=== PATIENT | female | born 1965 | race Caucasian/White ===

== ENCOUNTER → 2016-08-16 | Outpatient (CLI) | payer OTHER ==
[~2016-08-16] MED LIST: RT-ALBUTEROL SULF 2.5 MG/3 ML PRE-MIX VIAL IH ONE
--- NOTE | 2016-08-16 13:11 | Diagnostic Imaging Report ---
INDICATION: Upper back pain. EXAMINATION: PA and lateral chest. FINDINGS: Heart size and pulmonary vascularity are normal. Lungs are clear. There are no effusions or pneumothoraces. IMPRESSION: Negative chest. Dictated by: Dictated on workstation # [id number]
--- NOTE | 2016-08-16 14:03 | Diagnostic Imaging Report ---
EXAMINATION: Three views of the lumbar spine. INDICATION: Back pain. FINDINGS: There is a minimal right convexity curvature of the lumbar spine which could be positional or related to mild scoliosis. There is mild retrolisthesis of L3 over L4 and minimal retrolisthesis of L4 over L5. This is associated with mild disc height loss at both levels. Minimal anterior osteophytes are also seen. No significant posterior osteophytes are noted. Mild sclerotic degenerative changes in the sacroiliac joint seen. IMPRESSION: Lower lumbar spine degenerative changes and alignment abnormalities described, are presumably also degenerative related. Dictated by: Dictated on workstation # [id number]
== END ==
LOC: RT 11:44
PROVIDERS: ATTEND Neuromusculoskeletal Medicine, Sports Medicine
DX: Z02.71 Encounter for disability determination (principal); M51.36 Other intervertebral disc degeneration, lumbar region
CPT/HCPCS: 71020; 72100; 94060; 94640; 94729

== ENCOUNTER → 2018-05-24 | Outpatient (CLI) | payer MEDICAID ==
--- NOTE | 2018-05-24 10:13 | Diagnostic Imaging Report ---
INDICATION: Neck pain extending to the right arm. Time of exam 10:00 a.m. 3 views of the cervical spine were obtained. Curvature and alignment of the cervical spine is normal. The vertebral body heights and disc spaces are well-maintained. The prevertebral soft tissues are within normal limits. The odontoid appears intact. No fractures are seen. IMPRESSION: No acute bony abnormality is detected. Dictated by: Dictated on workstation # [id number]
== END ==
LOC: RAD FS 09:52
PROVIDERS: ATTEND Family Medicine
DX: M54.12 Radiculopathy, cervical region (principal)
CPT/HCPCS: 72040

== ENCOUNTER 2018-06-07 18:29 | Emergency (ER) | payer MEDICAID ==
--- NOTE | 2018-06-07 19:00 | NUR ---
was told by registration that this patiet left without being seen. unable to have patient sign form as this RN never saw patient.
--- OUTSIDE RECORDS SUMMARY | 2018-06-07 19:43 | XMS REPORT ---
Author Author Migration, Doctor Organization [facility] Address Unknown Phone Unavailable Care Team Providers Care Wirer Helper Name Role Phone Migration, Doctor Unavailable Unavailable PROBLEMS Type Condition ICD9-CM Code [id number] Code Onset Dates Condition Status SNOMED Code Problem Family history of diabetes mellitus V18.0 Active 913821891 Problem Screening for malignant neoplasm of the cervix V76.2 Active 025104884 Problem Unspecified abnormal mammogram 793.80 Active 217114687 Problem Abnormal glandular Papanicolaou smear of cervix 795.00 Active 166944109 Problem Other malaise and fatigue 780.79 Active 117465455 Problem Abdominal pain, unspecified site 789.00 Active 13694178 Problem Lump or mass in breast 611.72 Active 89580617 Problem Excessive or frequent menstruation 626.2 Active 354196262 Problem Intramural leiomyoma of uterus 218.1 Active 79459098 Problem Alcohol withdrawal syndrome with complication F10.239 Active 393409625 Problem Non morbid obesity E66.9 Active 992177787 Problem Other secondary kyphosis, 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 Active 652747418 Problem Unspecified iron deficiency anemia 280.9 Active 22600325 Problem Centrilobular emphysema J43.2 Active 40062779 Problem Extrinsic asthma, unspecified 493.00 Active 802827252 Problem Episode of moderate major depression F32.1 Active 51406470 Problem Alcohol induced acute pancreatitis without necrosis or infection K85.20 Active 987176913 Problem History of smoking 30 or more pack years Z87.891 Active 9720823182857 Problem Alcohol abuse F10.10 Active 55785717 ALLERGIES No Information ENCOUNTERS Encounter Location Date Diagnosis [address] [address] May, [address] [address] May, Radicular pain in right arm M79.[address] [address] Apr, [address] [address] Apr, Radicular pain in right arm M79.[address] [address] 18 Apr, 2018 Radicular pain in right arm M79.2 ; Hypoxia R09.02 ; Intramural leiomyoma of uterus 218.1 ; Unspecified iron deficiency anemia 280.9 ; Extrinsic asthma, unspecified 493.00 ; Lump or mass in breast 611.72 ; Excessive or frequent menstruation 626.2 ; Other malaise and fatigue 780.79 ; Abdominal pain, unspecified site 789.00 ; Unspecified abnormal mammogram 793.80 ; Abnormal glandular Papanicolaou smear of cervix 795.00 ; Family history of diabetes mellitus V18.0 ; Screening for malignant neoplasm of the cervix V76.2 ; Alcohol induced acute pancreatitis without necrosis or infection K85.20 ; Alcohol abuse F10.10 ; Alcohol withdrawal syndrome with complication F10.239 ; Centrilobular emphysema J43.2 ; History of smoking 30 or more pack years Z87.891 ; Other secondary kyphosis, 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 ; Episode of moderate major depression F32.1 and Non morbid obesity E66.[address] [address] 17 Apr, 2018 [facility] [address] [address] Apr, [address] [address] Apr, [facility] [address] [address] Jun, [facility] [id number] [place] [address] Jun, [facility] [address] [address] July, [facility] [address] [address] July, [facility] [place] [facility] [address] [id number] [place] [address] July, [facility] [place] [facility] [address] [id number] [place] [address] July, [facility] [place] [facility] [address] [id number] [place] [address] Jan, [facility] [place] [facility] [address] [id number] [place] [address] Jan, [facility] [place] [facility] [address] [id number] [place] [address] Jan, [facility] [place] [facility] [address] [id number] [place] [address] Jan, [facility] [place] [facility] [address] [id number] [place] [address] Dec, [facility] [place] [facility] [address] [id number] [place] [address] Dec, [facility] [place] [facility] [address] [id number] [place] [address] Dec, [facility] [place] [facility] [address] [facility] [id number] [address] Dec, [facility] [place] [facility] [address] [id number] [address] Dec, [facility] [place] [facility] [address] [id number] [address] Dec, [facility] [place] [facility] [address] [id number] [address] Dec, [facility] [place] [facility] [address] [id number] [address] Dec, [facility] [place] [facility] [address] [facility] [id number] [address] Dec, [facility] [place] [facility] [address] [id number] [address] Dec, [facility] [address] [address] Dec, [facility] [id number] [address] Dec, [facility] [id number] [address] Dec, [facility] [id number] [place] [address] Dec, [facility] [id number] [place] [address] Dec, [facility] [id number] [place] [address] Nov, [facility] [address] [address] Nov, [facility] [address] [address] Nov, [facility] [address] [address] Nov, IMMUNIZATIONS No Known Immunizations SOCIAL HISTORY Never Assessed REASON FOR VISIT [facility] [place] PLAN OF CARE VITAL SIGNS MEDICATIONS Unknown Medications RESULTS No Results PROCEDURES No Known procedures INSTRUCTIONS MEDICATIONS ADMINISTERED No Known Medications MEDICAL (GENERAL) HISTORY Type Description Date Medical History Alcohol induced acute pancreatitis without necrosis or infection Medical History Alcohol abuse Medical History Alcohol withdrawal syndrome with complication Medical History Centrilobular emphysema Medical History History of smoking 30 or more pack years Medical History Other secondary kyphosis, thoracic region Medical History Episode of moderate major depression Medical History Non morbid obesity Surgical History section Surgical History ankle surgery
--- OUTSIDE RECORDS SUMMARY | 2018-06-07 19:43 | XMS REPORT ---
Author Author ANDREI NESSELIAZAR Dug[facility] Address [address] [place] [address] Care Team Providers Care Information Systems Security Analyst Name Role Phone NESS FORBES Unavailable PROBLEMS Type Condition ICD9-CM Code EZV06-LL Code Onset Dates Condition Status SNOMED Code Problem Family history of diabetes mellitus V18.0 Active 828461583 Problem Screening for malignant neoplasm of the cervix V76.2 Active 332558275 Problem Unspecified abnormal mammogram 793.80 Active 090127037 Problem Abnormal glandular Papanicolaou smear of cervix 795.00 Active 474713376 Problem Other malaise and fatigue 780.79 Active 290472707 Problem Abdominal pain, unspecified site 789.00 Active 67897820 Problem Lump or mass in breast 611.72 Active 29085884 Problem Excessive or frequent menstruation 626.2 Active 596008207 Problem Intramural leiomyoma of uterus 218.1 Active 68833423 Problem Alcohol withdrawal syndrome with complication F10.239 Active 984347407 Problem Non morbid obesity E66.9 Active 034631908 Problem Other secondary kyphosis, 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 Active 410773484 Problem Unspecified iron deficiency anemia 280.9 Active 53384659 Problem Centrilobular emphysema J43.2 Active 23562938 Problem Extrinsic asthma, unspecified 493.00 Active 074888378 Problem Episode of moderate major depression F32.1 Active 36510367 Problem Alcohol induced acute pancreatitis without necrosis or infection K85.20 Active 350192433 Problem History of smoking 30 or more pack years Z87.891 Active 9246780958223 Problem Alcohol abuse F10.10 Active 69911168 ALLERGIES Substance Reaction Event Type Date Status Codeine Sulfate itching Drug Allergy Apr, Active ENCOUNTERS Encounter Location Date Diagnosis [address] [address] Apr, [address] [address] Apr, [facility] [place] [facility] [address] [id number] [place] [address] Apr, [facility] [place] [address] [place] [address] Apr, [facility] [place] [facility] [address] [id number] [place] [address] Jun, [facility] [place] [facility] [address] [id number] [place] [address] Jun, [facility] [place] [facility] [address] [id number] [place] [address] July, [facility] [place] [facility] [address] [id number] [place] [address] July, [facility] [place] [facility] [address] [id number] [place] [address] July, [facility] [place] [facility] [address] [id number] [place] [address] July, [facility] [place] [facility] [address] [id number] [place] [address] Jan, [facility] [place] [facility] [address] [id number] [place] [address] Jan, [facility] [place] [facility] [address] [id number] [address] Jan, [facility] [place] [facility] [address] [id number] [place] [address] Jan, [facility] [place] [facility] [address] [id number] [place] [address] Dec, [facility] [place] [facility] [address] [id number] [place] [address] Dec, [facility] [place] [facility] [address] [id number] [place] [address] Dec, [facility] [place] [facility] [address] [id number] [place] [address] Dec, [facility] [address] [id number] [place] [address] Dec, [facility] [address] [facility] [id number] [place] Dec, [facility] [address] [facility] [id number] [place] [address] Dec, [facility] [address] [facility] [id number] [place] [address] Dec, [facility] [address] [facility] [id number] [place] Dec, [facility] [address] [facility] [id number] [place] [address] Dec, [facility] [address] [address] Dec, [facility] [address] [facility] [id number] [place] [address] Dec, [facility] [address] [address] Dec, [facility] [address] [facility] [id number] [place] [address] Dec, [facility] [address] [address] Dec, [facility] [address] [facility] [id number] [place] [address] 27 Nov, 2011 [facility] [address] [facility] [id number] [place] [address] 17 Nov, 2011 [facility] [address] [facility] [id number] [place] [address] 12 Nov, 2011 [facility] [id number] [address] 11 Nov, 2011 IMMUNIZATIONS No Known Immunizations SOCIAL HISTORY Never Assessed REASON FOR VISIT PLAN OF CARE VITAL SIGNS MEDICATIONS Medication Instructions Dosage Frequency Start Date End Date Duration Status Albuterol Sulfate (2.5 MG/3ML) 0.083% USE 3 ML IN NEBULIZER EVERY 6 HOURS NEEDED FOR SHORTNESS OF BREATH 9 Active ProAir HFA 108 (90 Base) MCG/ACT INHALE 2 PUFFS BY MOUTH EVERY 6 HOURS NEEDED FOR SHORTNESS OF BREATH OR WHEEZING 25 Active Singulair 10 mg 1 tablet by Oral route 1 time per day Dec, Unknown Prozac 20 MG Orally Once a day 1 capsule 24h 90 days Active Ventolin HFA 90 mcg/actuation inhale 2 puff by Inhalation route as needed every 6 hoursfor breathing Nov, Active Tylenol PM Extra Strength by Oral route Nov, Active Advair Diskus 250-50 MCG/DOSE INHALE ONE PUFF BY MOUTH TWICE DAILY 30 Active Ferrous Sulfate 325 mg (65 mg iron) 1 tablet by Oral route 2 times per day Nov, Unknown RESULTS No Results PROCEDURES No Known procedures [...]
--- OUTSIDE RECORDS SUMMARY | 2018-06-07 19:43 | XMS REPORT | Continuity of Care Document ---
Author Author [facility] Address Unknown Phone Unavailable Allergies Active Description Code Type Severity Reaction Onset Reported/Identified Relationship to Patient Clinical Status Yes No Known Drug Allergies [id number] Drug Allergy Unknown N/A 08/16/2016 Medications There is no data. Problems Date Dx Coded Attending Type Code Diagnosis Diagnosed By 11/28/2011 493.00 ASTHMA EXTRINSIC 11/28/2011 626.2 MENORRHAGIA 11/28/2011 780.79 FATIGUE 11/28/2011 789.00 abdominal pain 11/28/2011 V18.0 FAMILY HISTORY OF DIABETES MELLITUS 11/28/2011 RACHEL DAI DO 493.00 ASTHMA EXTRINSIC 11/28/2011 RACHEL DAI DO 626.2 MENORRHAGIA 11/28/2011 RACHEL DAI DO 780.79 FATIGUE 11/28/2011 RACHEL DAI DO 789.00 abdominal pain 11/28/2011 RACHEL DAI DO V18.0 FAMILY HISTORY OF DIABETES MELLITUS 12/14/2011 280.9 IRON DEFICIENCY ANEMIA UNSPECIFIED 12/14/2011 611.72 LUMP OR MASS IN BREAST 12/14/2011 V76.2 CERVICAL CANCER SCREENING (PAP SMEAR) 12/14/2011 RACHEL DAI DO 280.9 IRON DEFICIENCY ANEMIA UNSPECIFIED 12/14/2011 RACHEL DAI DO 611.72 LUMP OR MASS IN BREAST 12/14/2011 RACHEL DAI DO V76.2 CERVICAL CANCER SCREENING (PAP SMEAR) 01/04/2012 218.1 INTRAMURAL LEIOMYOMA OF UTERUS 01/04/2012 795.00 ABNORMAL PAP - AGCUS (ATYPICAL GLANDULAR CELLS OF UNDETERMINED SIGNIFICANCE) 01/04/2012 RACHEL DAI DO 218.1 INTRAMURAL LEIOMYOMA OF UTERUS 01/04/2012 RACHEL DAI DO 795.00 ABNORMAL PAP - AGCUS (ATYPICAL GLANDULAR CELLS OF UNDETERMINED SIGNIFICANCE) 01/24/2012 793.80 ABNORMAL MAMMOGRAM 01/24/2012 RACHEL DAI DO 793.80 ABNORMAL MAMMOGRAM 03/01/2016 Ot 621.2 HYPERTROPHY OF UTERUS 03/01/2016 Ot 626.2 EXCESSIVE MENSTRUATION 03/01/2016 Ot 789.39 ABDOMINAL/ PELVIC SWELLING,MASS/LUMP, OTH 03/02/2016 JAVY ABDI MD (DDU) Ot Z02.71 ENCOUNTER FOR DISABILITY DETERMINATION 08/11/2016 Ot 621.2 HYPERTROPHY OF UTERUS 08/11/2016 Ot 626.2 EXCESSIVE MENSTRUATION 08/11/2016 Ot 789.39 ABDOMINAL/ PELVIC SWELLING,MASS/LUMP, OTH 08/11/2016 JAVY ABDI MD (DDU) Ot Z02.71 ENCOUNTER FOR DISABILITY DETERMINATION 08/18/2016 JAVY ABDI MD (DDU) Ot M51.36 OTHER INTERVERTEBRAL DISC DEGENERATION, 08/18/2016 JAVY ABDI MD (DDU) Ot Z02.71 ENCOUNTER FOR DISABILITY DETERMINATION 05/24/2018 JAVY ABDI MD (DDU) Ot Z02.71 ENCOUNTER FOR DISABILITY DETERMINATION 05/24/2018 JAVY ABDI MD (DDU) Ot M51.36 OTHER INTERVERTEBRAL DISC DEGENERATION, 05/24/2018 JAVY ABDI MD (DDU) Ot Z02.71 ENCOUNTER FOR DISABILITY DETERMINATION 05/27/2018 NESS FORBES MD Ot M54.12 RADICULOPATHY, CERVICAL REGION 06/05/2018 NESS FORBES MD Ot M54.12 RADICULOPATHY, CERVICAL REGION 06/06/2018 NESS FORBES MD Ot M54.12 RADICULOPATHY, CERVICAL REGION Procedures Code Description [place] [address] US BREAST(S) ULTRASOUND, BOTH 01/05/2012 05040 MAMMOGRAM DX, DENISA 07/15/2012 26244 MAMMOGRAM DX, LEFT 07/17/2012 Results There is no data. Encounters ACCT No. Visit Date/Time Discharge Status Pt. Type Provider Facility Loc./Unit Complaint [id number] 01/04/2012 09:28:00 01/04/2012 23:59:59 CLS Outpatient MALAIKA RACHEL JOHNSON [id number] 01/04/2012 09:28:00 Document Registration [id number] 05/24/2018 09:52:00 05/24/2018 23:59:59 CLS Outpatient NESS FORBES MD [facility] RAD FS M79.2 [id number] 08/16/2016 11:44:00 08/16/2016 23:59:59 CLS Outpatient JAVY ABDI MD (DDU) [facility] RT DDU [id number] 03/01/2016 10:07:00 03/01/2016 23:59:59 CLS Outpatient JAVY ABDI MD (DDU) [facility] RAD DDU [id number] 12/04/2011 13:57:00 Document Registration [id number] 05/06/2018 14:15:00 05/06/2018 23:59:59 CLS Outpatient ANDREI, NESS DENG
== END 2018-06-07 19:00 | disposition left against medical advice (07) ==
LOC: EDUNIT# 18:29 → ER FS 18:30
DX: S61.412A Laceration without foreign body of left hand, initial encounter (principal); X58.XXXA Exposure to other specified factors, initial encounter

== ENCOUNTER 2019-12-03 20:27 | Emergency (ER) | payer MEDICAID ==
[~2019-12-03] VITALS: Ht 152.4 cm; Wt 68.0 kg
[2019-12-03 20:29] VITALS: BP 146/101
[2019-12-03] MEDS ORDERED: LIDOCAINE/EPI 2% 1:100,00 (XYLOCAINE) 20 ML VIAL ONE (20:29)
--- NOTE | 2019-12-03 20:50 | NUR ---
PT ALLOWED X3 SUTURES TO BE PLACED BY PROVIDER ABOVE LEFT EYE. PT REFUSED TO HAVE ANY FURTHER TESTING DONE AND DID NOT WAIT FOR DISCHARGE PAPERWORK.
--- NOTE | 2019-12-03 21:02 | ED Head Injury ---
General Chief Complaint: Laceration Stated Complaint: FALL,HEAD LAC Nursing Triage Note: PT AMBULATE TO ROOM FS01 VIA EMS WITH C/O LAC ABOVE LEFT EYE. PT IS UNCOOPERATIVE AND NOT WILLING TO GIVE INFORMATION ON C/O. PT CONTINUES TO STATE THAT SHE IS WANTING TO LEAVE. PT APPEARS TO BE INTOXICATED. Source: patient, EMS Exam Limitations: intoxication History of Present Illness Date Seen by Provider: Dec 03, 2019 Time Seen by Provider: 20:27 Initial Comments 54-year-old female presenting by EMS with laceration to the left forehead. Patient is uncooperative and repeatedly states that she wants to leave. She was finally willing to have her cut evaluated. She was willing to have the cut repaired to get the bleeding controlled. She would not state what happened at home or how she had injury. She finally states she thinks she fell at home. She denies pain or other injury. she denies trouble with her vision. She has no nausea or vomiting. She would not say if her tetanus was up to date or not. Allergies and Home Medications Allergies Coded Allergies: No Known Drug Allergies (Unverified , 08/16/16) Patient Home Medication List Home Medication List Reviewed: Yes Review of Systems Review of Systems Constitutional: no symptoms reported Eyes: No Symptoms Reported Ears, Nose, Mouth, Throat: no symptoms reported Respiratory: cough (chronic from COPD/Asthma) Cardiovascular: no symptoms reported Gastrointestinal: no symptoms reported Genitourinary: no symptoms reported Musculoskeletal: no symptoms reported Skin: see HPI Psychiatric/Neurological: Denies Headache Past Wsmekab-Juyvmk-Gyvjpt Hx Past Med/Social Hx: Reviewed Nursing Past Med/Soc Hx Patient Social History Alcohol Use: Denies Use Recreational Drug Use: No Smoking Status: Never a Smoker 2nd Hand Smoke Exposure: No Recent Foreign Travel: No Contact w/Someone Who Travel: No Recent Infectious Disease Expo: No Recent Hopitalizations: No Physical Abuse: No Sexual Abuse: No Mistreated: No Fear: No Seasonal Allergies Seasonal Allergies: No Past Medical History Surgeries: No Respiratory: Yes Asthma, COPD Cardiac: No Neurological: No Genitourinary: No Gastrointestinal: No Musculoskeletal: No Endocrine: No HEENT: No Cancer: No Psychosocial: No Integumentary: No Blood Disorders: No Physical Exam Vital Signs Vital Signs - First Documented 12/03/19 20:29 Temp 36.9 Pulse 121 Resp 18 B/P (MAP) 146/101 (116) O2 Delivery Room Air Capillary Refill : Less Than 3 Seconds Height, Weight, BMI Height: '" Weight: lbs. oz. kg; 29.00 BMI Method: General Appearance: other (anxious and appears intoxicated) HEENT: PERRL/EOMI; No photophobia; other (1.7 cm laceration to left forehead by hairline) Neck: non-tender, full range of motion, supple, normal inspection Psychiatric: alert, oriented x 3 Crainal Nerves: normal hearing, normal speech, PERRL Coordination/Gait: normal gait (steady gait) Motor/Sensory: no motor deficit, no sensory deficit Skin: warm/dry, other (laceration to left forehead) [place] Coma Score Best Eye Response: (4) Open Spontaneously Best Verbal Response: (5) Oriented Best Motor Response: (6) Obeys Commands Bri Total: 15 Images 1 - 1.7 cm laceration with surrounding hematoma Procedures/Interventions Wound Location: Face Wound Length (cm): 1.7 Wound's Depth, Shape: linear, sub Q Wound Explored: clean Anesthesia: Lidocaine w/ Epi Volume Anesthetic (ccs): 4 Suture: Ethlion Suture Size: 5-0 Number of Sutures: 3 Layer Closure?: 1 Sterile Dressing Applied?: No Progress After obtaining verbal consent from patient the wound was anesthetized with Lidocaine with epinephrine. Then the wound was cleaned with Sterile saline with chlorhexidine scrub solution. Then using 5-0 Ethilon 3 simple interrupted sti tches were placed to approximate the wound edges and get the bleeding controlled. the stitches were left with long tails to make it easier to find since they were at the scalp edge on the left side of forehead. She had a large hematoma still but I did try to evacuate part of the hematoma prior to closing the wound and approximating the wound edges. Pt tolerated the procedure relatively well but did require a nurse to help hold her head steady and another nurse to help keep her calm and cooperative as she was easily distracted and kept wanting to get up and leave rather than wait for the procedure to be done. Progress/Results/Core Measures Results/Orders My Orders Orders - NOAH NEWMAN MD Lidocaine/Epi 2% 1:100,000 (Xylocaine/Ep (12/03/19 20:29) Vital Signs/I&O 12/03/19 20:29 Temp 36.9 Pulse 121 Resp 18 B/P (MAP) 146/101 (116) O2 Delivery Room Air Blood Pressure Mean: 116 Progress Progress Note : Progress Note after several minutes of talking with patient she was finally willing to allow the laceration to be evaluated and then after several more minutes of talking and showing her that the wound continued to bleed and saturate through gauze she was willing to allow the wound to be repaired. she did require 2 nurses to help keep her steady and in one place to allow me to repair her laceration. she was not willing to stay longer for further evaluation such as CT head to check for bleeding or fractures or CT cervical spine to evaluate for fracture after fall. She also was not willing to stay for any labs or further evaluation. she did not stay even for information about stitches or care of the wound and removal of stitches. She left AMA without signing any AMA form or discharge instructions. Departure Impression Primary Impression: Left against medical advice Additional Impressions: Forehead laceration Qualified Codes: S01.81XA - Laceration without foreign body of other part of head, initial encounter Fall at home Qualified Codes: W19.XXXA - Unspecified fall, initial encounter; Y92.009 - Unspecified place in unspecified non-institutional (private) residence as the place of occurrence of the external cause Disposition: 07 AGAINST MEDICAL ADVICE Condition: Against Medical Advice Departure-Patient Inst. Referrals: NESS FORBES MD (PCP/Family) Primary Care Physician NOAH NEWMAN MD Dec 03, 2019 21:02
== END 2019-12-03 20:55 | disposition left against medical advice (07) ==
LOC: EDUNIT# 20:27 → ER FS 20:28
DX: S01.81XA Laceration without foreign body of other part of head, initial encounter (principal); R40.2360 Coma scale, best motor response, obeys commands, unspecified time; R40.2140 Coma scale, eyes open, spontaneous, unspecified time; R40.2250 Coma scale, best verbal response, oriented, unspecified time; J44.9 Chronic obstructive pulmonary disease, unspecified; W19.XXXA Unspecified fall, initial encounter; Y92.009 Unspecified place in unspecified non-institutional (private) residence as the place of occurrence of the external cause